=== PATIENT | female | born 2000 | race Caucasian/White ===

== ENCOUNTER 2019-07-30 01:52 | Emergency (ER) | payer BC ==
--- NOTE | 2019-07-30 02:55 | ER Document Report ---
ED General - General Chief Complaint: Anxiety Stated Complaint: ANXIETY,POSSIBLE HALLUCINATIONS Time Seen by Provider: 07/30/19 02:16 Notes: Patient is a 19-year-old female who presents emergency department with a chief complaint of anxiety. Her sisters are at bedside to provide additional history. The patient is not very talkative at this time. Patient would nod her head yes or no to yes or no questions and would not speak to me. Sister states that the patient had 2 glasses of wine tonight and apparently when she has had wine in the past, she ended up having panic attacks. According to the sisters, the patient "shaking" after she went into her panic attack. She had twitching movements when I was speaking with her, but was responding to me. Patient denies any pain at this time. Per her sisters, she has a past medical history of iron deficiency anemia, depression, and was recently diagnosed with an upper respiratory infection was given doxycycline. - Related Data Allergies/Adverse Reactions: peanut Allergy (Verified 07/30/19 01:58) Past Medical History - General Information source: Relative - Social History Smoking Status: Current Some Day Smoker Frequency of alcohol use: Occasional Drug Abuse: Marijuana Family History: Reviewed & Not Pertinent Review of Systems - Review of Systems -: Yes ROS unobtainable due to patient's medical condition Physical Exam - Vital signs Vitals: Temp Pulse Resp BP Pulse Ox 98.1 F 126 H 60 H 128/99 H 98 07/30/19 02:04 07/30/19 02:04 07/30/19 02:04 07/30/19 02:04 07/30/19 02:04 - Notes Notes: PHYSICAL EXAMINATION: GENERAL: Appears well, healthy, well-nourished, mild mental distress. HEAD: Normocephalic, atraumatic. EYES: PERRL, conjunctiva normal, all extraocular movements intact, sclera nonicteric ENT: Dry mucous membranes. NECK: Supple, no noticeable swelling, redness, rash. Normal range of motion. LUNGS: Equal breath sounds bilaterally and clear to auscultation. No wheezes rales or rhonchi. CARDIOVASCULAR: S1-S2, regular rate, regular rhythm. Radial pulses 2+, normal. ABDOMEN: Normoactive bowel sounds. Soft, nontender, no guarding, no rebound tenderness, and no masses palpated. EXTREMITIES: Normal strength and range of motion, no pitting or edema. No cyanosis. NEUROLOGICAL: Moves all extremities upon command. Strength 5/5 in all extremities. PSYCH: Withdrawn, not talkative. SKIN: Warm, dry. No rash, lesions, ulcerations noted. Normal skin turgor. Course - Re-evaluation Re-evalutation: 07/30/19 06:05 Patient's hematology shows a white blood cell count of 13,700. I suspect this is due to her having a recent upper respiratory infection, which she is being treated with doxycycline for. Her urine does not show any leukocytes. Serum alcohol was 50, which is consistent with her drinking alcohol last night. Awaiting toxicology. Patient is now awake and able to speak with me. I asked if she was wanting to hurt herself or anyone else and she denies that at this time. She states that she feels much better. 07/30/19 06:14 Patient's toxicology has resulted in she was positive for marijuana. I asked the patient in private if she was trying to hide smoking marijuana from her sisters and she said she was not trying to hide it, but she does not think her sisters noticed. This thorough conversation with the patient about starting her antianxiety medication that she was on before. She states that she does not want to take at this time. I discussed with her that her medication may help and I recommend that she see her psychiatrist when she goes back to [place] on Thursday. She completely denies any suicidal or homicidal ideation at this time. Patient feels safe to go home with her sister. She never had any intention to hurt herself or others. She has felt like she was having a "panic attack." Return precautions were given. Follow-up precautions were given. Verbal discharge instructions were given to the patient. They verbalized understanding. They are stable for discharge. - Vital Signs Vital signs: Temp Pulse Resp BP Pulse Ox 98.4 F 107 H 18 108/68 97 07/30/19 06:10 07/30/19 06:10 07/30/19 06:10 07/30/19 06:10 07/30/19 06:10 - Laboratory Result Diagrams: 07/30/19 03:20 07/30/19 03:20 Laboratory results interpreted by me: 07/30/19 07/30/19 03:20 03:20 WBC 13.7 H Lymph % (Auto) 8.6 L Absolute Neuts (auto) 11.6 H Seg Neutrophils % 84.4 H Salicylates < 1.0 L Acetaminophen < 10 L - EKG Interpretation by Me Additional EKG results interpreted by me: 07/30/19 06:16 Tachycardia. Rate 121. OH 148; QRS 82; QT 320; QTc 454. No ST elevations or depressions noted. Discharge - Discharge Clinical Impression: Anxiety Condition: Stable Disposition: HOME, SELF-CARE Instructions: Anxiety ([facility]) Additional Instructions: You were seen today in the emergency department for a panic attack. Your anxiety has resolved here in the emergency department. Please stay away from anything that may trigger your anxiety. Please follow-up with your mental health provider when you get home to [place]. If you have worsening symptom s, you want to hurt yourself or anyone else, please return to the emergency department.
[2019-07-30 03:33] LABS: ABSOLUTE BASOPHILS # (AUTO) 0.1 10^3/uL (0.0-0.2); ABSOLUTE LYMPHOCYTES (AUTO) 1.2 10^3/uL (0.5-4.7); ABSOLUTE MONOCYTES (AUTO) 0.9 10^3/uL (0.1-1.4); ABSOLUTE NEUT (AUTO) 11.6 10^3/uL (1.7-8.2); BASOPHILS % (AUTO) 0.4 % (0-2); EOSINOPHILS % (AUTO) 0.2 % (0-6); HEMATOCRIT 38.1 % (36.0-47.0); LYMPHOCYTES % (AUTO) 8.6 % (13-45); MEAN CORPUSCULAR HEMOGLOBIN 28.6 pg (27.0-33.4); MEAN CORPUSCULAR VOLUME 84 fl (80-97); MONOCYTES % (AUTO) 6.4 % (3-13); PLATELET COUNT 315 10^3/uL (150-450); RED BLOOD COUNT 4.53 10^6/uL (3.72-5.28); SEGMENTED NEUTROPHILS % (AUTO) 84.4 % (42-78); TOTAL CELLS COUNTED % (AUTO) 100 %; WHITE BLOOD COUNT 13.7 10^3/uL (4.0-10.5)
[2019-07-30 03:42] LABS: ACETAMINOPHEN < 10 ug/mL (10-30); ALBUMIN 4.7 g/dL (3.5-5.0); ALCOHOL 50 mg/dL (NONE DETECTED); ALKALINE PHOSPHATASE 76 U/L (38-126); ANION GAP 12 (5-19); ASPARTATE AMINO TRANSFERASE 32 U/L (14-36); BILIRUBIN,DIRECT 0.1 mg/dL (0.0-0.4); BILIRUBIN,TOTAL 0.3 mg/dL (0.2-1.3); BLOOD UREA NITROGEN 11 mg/dL (7-20); CALCIUM 9.5 mg/dL (8.4-10.2); CARBON DIOXIDE 25 mmol/L (22-30); CHLORIDE 101 mmol/L (98-107); GLUCOSE 104 mg/dL (75-110); POTASSIUM 3.9 mmol/L (3.6-5.0); SALICYLATE < 1.0 mg/dL (2.0-20.0); TOTAL PROTEIN 7.4 g/dL (6.3-8.2)
[2019-07-30 05:50] LABS: APPEARANCE,URINE SLIGHTLY-CLOUDY; BILIRUBIN,URINE NEGATIVE (NEGATIVE); COLOR,URINE YELLOW; GLUCOSE, URINE NEGATIVE (NEGATIVE); KETONES,URINE NEGATIVE (NEGATIVE); LEUKOCYTE ESTERASE,URINE NEGATIVE (NEGATIVE); NITRITE,URINE NEGATIVE (NEGATIVE); PROTEIN,URINE NEGATIVE (NEGATIVE); URINE SPECIFIC GRAVITY 1.008; UROBILINOGEN,URINE NEGATIVE mg/dL (<2.0)
[2019-07-30 06:04] LABS: URINE AMPHETAMINES SCREEN NEGATIVE; URINE BARBITURATES SCREEN NEGATIVE; URINE BENZODIAZEPINES SCREEN NEGATIVE; URINE COCAINE SCREEN NEGATIVE; URINE MARIJUANA (THC) SCREEN UNCONFIRMED POSITIVE; URINE METHADONE SCREEN NEGATIVE; URINE PHENCYCLIDINE SCREEN NEGATIVE
[2019-07-30 06:14] VITALS: BP 108/68
--- NOTE | 2019-07-30 19:43 | EKG REPORT ---
SEVERITY:- ABNORMAL ECG - SINUS TACHYCARDIA TAYLOR, CONSIDER BIATRIAL ABNORMALITIES BORDERLINE T ABNORMALITIES, INFERIOR LEADS : Confirmed by: Mckenzie Love MD 30-Jul-2019 19:43:01
== END 2019-07-30 06:23 | disposition home or self-care (01) ==
LOC: ER 01:52
DX: F41.9 Anxiety disorder, unspecified (principal); J06.9 Acute upper respiratory infection, unspecified; F12.10 Cannabis abuse, uncomplicated; F17.200 Nicotine dependence, unspecified, uncomplicated; R25.3 Fasciculation; Z91.010 Allergy to peanuts
CPT/HCPCS: 36415; 80053; 80307; 81001; 84703; 85025; 93005; 93010; 99284